=== PATIENT | male | born 1935 | race Caucasian/White ===

== ENCOUNTER 2023-05-19 13:16 | Emergency (ER) | payer MEDICARE, OTHER ==
[2023-05-19] MEDS ORDERED: Propofol 200 MG/20 ML SDV IV ONE (13:17)
[2023-05-19] MEDS ORDERED: Naloxone 0.4 MG/ML SDV IVPUSH PRN (13:39)
[2023-05-19] MEDS: Morphine 2 MG/ML SYRINGE IVPUSH ONE ×2 (13:46→15:38)
[2023-05-19 15:32] LABS: BASOPHILS PERCENT AUTO 0.3 % (0.3-3.8); EOSINOPHILS ABSOLUTE AUTO 0.1 x10-3/uL (0.0-0.6); EOSINOPHILS PERCENT AUTO 1.1 % (0.1-6.8); HEMATOCRIT 39.9 % (38.3-50.1); HEMOGLOBIN 12.9 g/dL (12.9-17.7); LYMPHOCYTES PERCENT AUTO 8.3 % (15.8-45.3); MEAN CORPUSCULAR HEMOGLOBIN 26.8 pg (27.0-33.3); MEAN CORPUSCULAR HGB CONC 32.3 g/dL (28.7-35.3); MEAN PLATELET VOLUME 7.7 fL (6.7-11.0); MONOCYTES ABSOLUTE AUTO 0.8 x10-3/uL (0.0-1.2); MONOCYTES PERCENT AUTO 6.1 % (5.5-15.2); NEUTROPHILS ABSOLUTE AUTO 10.6 x10-3/uL (1.7-6.9); NEUTROPHILS PERCENT AUTO 84.2 % (40.3-71.8); PLATELET COUNT,PLT 333 x10(3)uL (117-477); RED BLOOD CELL COUNT 4.81 x10(6)uL (3.90-5.90); RED CELL DISTRIBUTION WIDTH 16.7 % (12.4-15.0); WHITE BLOOD CELL COUNT,WBC 12.6 x10-3/uL (3.2-10.1)
[2023-05-19 15:36] LABS: BLOOD UREA NITROGEN,BUN 22 mg/dL (7-18); CALCIUM 8.8 mg/dL (8.6-10.2); CARBON DIOXIDE,CO2 25 mmol/L (21-32); CHLORIDE,CL 104 mmol/L (100-110); ESTIMATED GFR 73 mL/min (>60); GLUCOSE RANDOM 118 mg/dL (80-116); SODIUM,NA 137 mmol/L (135-145)
[2023-05-19 15:40] LABS: INR 2.74 (1.00-1.24); PROTHROMBIN TIME 26.2 sec (9.0-11.1)
[2023-05-19 15:42] LABS: A/G RATIO 0.7; ALANINE AMINOTRANSFERASE,ALT 25 U/L (12-36); ALKALINE PHOSPHATASE 75 IU/L (56-112); ASPARTATE AMNIOTRANSFERASE,AST 21 IU/L (5-25); BILIRUBIN TOTAL 0.6 mg/dL (0.1-1.3); PROTEIN TOTAL,TP 7.5 g/dL (6.0-8.0); PTT,PARTIAL THROMBOPLSTIN TIME 43.6 SECONDS (24.4-33.2)
== END 2023-05-19 15:57 ==
LOC: FB.ED 13:16
DX: S43.005A Unspecified dislocation of left shoulder joint, initial encounter (principal); I63.9 Cerebral infarction, unspecified; I10 Essential (primary) hypertension; E78.5 Hyperlipidemia, unspecified; Z79.899 Other long term (current) drug therapy; Z79.01 Long term (current) use of anticoagulants; X50.1XXA Overexertion from prolonged static or awkward postures, initial encounter
CPT/HCPCS: 23650; 36415; 73030-LT; 80053; 85025; 85610; 85730; 96374; 96376; 99152; 99156; 99284-25; 99285; J2270; J2704

== ENCOUNTER 2024-12-21 15:10 | Emergency (ER) | payer MEDICARE, OTHER ==
[2024-12-21 16:07] LABS: BASOPHILS ABSOLUTE AUTO 0.1 x10-3/uL (0.0-0.3); BASOPHILS PERCENT AUTO 0.7 % (0.3-3.8); EOSINOPHILS ABSOLUTE AUTO 0.1 x10-3/uL (0.0-0.6); EOSINOPHILS PERCENT AUTO 1.8 % (0.1-6.8); LYMPHOCYTES ABSOLUTE AUTO 1.3 x10-3/uL (0.5-4.5); LYMPHOCYTES PERCENT AUTO 16.5 % (15.8-45.3); MEAN PLATELET VOLUME 8.1 fL (6.7-11.0); MONOCYTES ABSOLUTE AUTO 0.7 x10-3/uL (0.0-1.2); MONOCYTES PERCENT AUTO 9.4 % (5.5-15.2); NEUTROPHILS ABSOLUTE AUTO 5.7 x10-3/uL (1.7-6.9); NEUTROPHILS PERCENT AUTO 71.6 % (40.3-71.8); PLATELET COUNT,PLT 313 x10(3)uL (117-477); RED CELL DISTRIBUTION WIDTH 19.9 % (12.4-15.0); WHITE BLOOD CELL COUNT,WBC 8.0 x10-3/uL (3.2-10.1)
[2024-12-21 16:10] LABS: BLOOD UREA NITROGEN,BUN 22 mg/dL (7-18); CARBON DIOXIDE,CO2 26 mmol/L (21-32); CHLORIDE,CL 110 mmol/L (100-110); CREATININE 1.4 mg/dL (0.70-1.30); ESTIMATED GFR 48 mL/min (>60); GLUCOSE RANDOM 99 mg/dL (80-116); POTASSIUM,K 4.0 mmol/L (3.5-5.3); SODIUM,NA 145 mmol/L (135-145)
[2024-12-21 16:14] LABS: RED BLOOD CELL COUNT 5.51 x10(6)uL (3.90-5.90)
[2024-12-21 16:16] LABS: INR 1.24 (1.00-1.24); PTT,PARTIAL THROMBOPLSTIN TIME 30.3 SECONDS (24.4-33.2)
[2024-12-21 16:17] LABS: A/G RATIO 0.9; ALANINE AMINOTRANSFERASE,ALT 54 U/L (12-36); ASPARTATE AMNIOTRANSFERASE,AST 48 IU/L (5-25); BILIRUBIN TOTAL 1.0 mg/dL (0.1-1.3); PROTEIN TOTAL,TP 7.2 g/dL (6.0-8.0)
== END 2024-12-21 16:50 | disposition home or self-care (01) ==
LOC: FB.ED 15:10
DX: S61.412A Laceration without foreign body of left hand, initial encounter (principal); I10 Essential (primary) hypertension; Z79.01 Long term (current) use of anticoagulants; W01.0XXA Fall on same level from slipping, tripping and stumbling without subsequent striking against object, initial encounter
CPT/HCPCS: 36415; 80053; 85025; 85610; 85730; 86140; 99283

== ENCOUNTER 2025-02-07 09:32 | Emergency (ER) | payer MEDICARE, OTHER | END 2025-02-07 13:20 | disposition home or self-care (01) | LOC: FB.ED 09:32 | DX: Z48.00 Encounter for change or removal of nonsurgical wound dressing (principal); I48.91 Unspecified atrial fibrillation; I11.0 Hypertensive heart disease with heart failure; I50.9 Heart failure, unspecified; E78.00 Pure hypercholesterolemia, unspecified; Z79.01 Long term (current) use of anticoagulants; Z79.899 Other long term (current) drug therapy | CPT/HCPCS: 36410; 96365; 99282-25 ==